=== PATIENT | male | born 1970 | race Caucasian/White ===

== ENCOUNTER → 2018-06-18 08:29 | Outpatient (CLI) | payer BC, SELFPAY ==
[2018-06-23 07:04] LABS: H. pylori Stool Ag, EIA Negative (Negative)
== END ==
PROVIDERS: Visit Provider Surgery
DX: A04.8 Other specified bacterial intestinal infections (principal)
CPT/HCPCS: 87338

== ENCOUNTER → 2019-12-13 09:51 | Outpatient (CLI) | payer BC, SELFPAY ==
--- NOTE | 2019-12-13 09:57 | XR_ITS ---
PROCEDURE: XR SHOULDER RT MIN 2V CLINICAL INDICATION: separatrion of AC joint follow up Follow-up AC joint separation COMPARISON: XR SHOULDER RT MIN 2V from 10/15/2019 FINDINGS: No change in the grade 3 right AC joint separation. There is some developing calcification in the coracoclavicular ligament region IMPRESSION: Stable grade 3 right AC separation with some developing calcification in the core cul ligament area at the clavicle Dictated by: Jeremy Shook MD 12/13/2019 18:49 Electronically signed by Jeremy Shook MD in [place] 12/13/2019 18:49
== END ==
PROVIDERS: PCP Family Medicine; Visit Provider Orthopaedic Surgery
DX: S43.101A Unspecified dislocation of right acromioclavicular joint, initial encounter (principal)
CPT/HCPCS: 73030

== ENCOUNTER 2019-12-16 08:30 | Outpatient (RCR) | payer BC, SELFPAY ==
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
--- NOTE | 2019-12-13 08:36 | HMH.RHREAS ---
Rehab Reassessment Rehab OP Re-assessment Start: 12/13/19 08:09 Freq: Status: Active Protocol: Document 12/13/19 08:09 LETICIA (Rec: 12/13/19 08:36 LETICIA [id number]) Electronically Signed By Gómez Toussaint, PT 12/13/19 08:09 Rehab Re-assessment Subjective Subjective PT REPORTS 0-1/10 R SHOULDER PAIN ON VAS W/ACTIVITY, AND FEELS 90% BETTER OVERALL SINCE I EVAL Objective Objective Notes AROM: R SH WFL ALL DIRECTIONS MMT: R SH FLX 4+/5, ABD 4-4+/5 , IR 5/5, ER 4+/5, BICEP 5/5, TRICEP 5/5 TTP: R AC JT 11/12 Assessment Progress Assessment Progressing as Expected Assessment Notes PT W/IMPROVED ROM, STRENGTH, AND TTP Patient goals met STG'S 06/18 Goals Not Met STG'S 06/18 Plan Plan PT TO CONT. W/SKILLED P.T. TO MAKE FURTHER IMPROVEMENTS IN STRENGTH, ROM, AND TTP TO ALLOW FOR OPTIMAL FUNCTION AND ALLOW FOR FULL RETURN TO WORK RELATED ACTIVITIES Frequency of Therapy 1-2X/WK Duration of therapy 1-2WKS Time and Billing Re-Eval Time 15 Re-Eval Billing Units 1 PHYSICIAN CERTIFICATION: I certify the specified therapy services for Drew Bender are required, authorized, and reviewed every 30 days.
== END 2019-12-16 08:35 | disposition home or self-care (01) ==
LOC: PT 08:30
PROVIDERS: PCP Family Medicine; Visit Provider Orthopaedic Surgery
DX: S43.101D Unspecified dislocation of right acromioclavicular joint, subsequent encounter (principal)
CPT/HCPCS: 97010; 97014; 97016; 97033; 97110; 97163; 97164; G0283

== ENCOUNTER 2020-08-02 09:13 | Emergency (ER) | payer BC, SELFPAY ==
[2020-08-02 09:26] VITALS: BP 138/90; PULSE 101; RESP 19; TEMP 37; O2SAT 96; BMI 28.8
[2020-08-02 09:37] LABS: UTC Strep Screen (Rapid) Negative (Negative)
--- NOTE | 2020-08-02 09:38 | HMH.EDUTC ---
[facility] [place] Impression: Viral syndrome Disposition: Home, Self-Care Condition on Discharge: Good Instructions: Sore Throat, DI for Fever (Symptom) -- Adult, Preventing the Spread of Coronavirus Discharge Instructions Additional Instructions: *Monitor Temp, Over the counter Motrin or Tylenol as directed/as needed Tylenol every 4 hours and Motrin every 6 hours (as long as your family doctor has told you that you can take it) for fever or pain. and straight to ER if unable to lower temp less than 101.0 after medication given *Warm salt water gargles may help to soothe the throat *Throat Lozenges *Warm fluids like tea with honey may help to soothe the throat *Sleep elevated *Humidifier/Vaporizer *Flonase 2 sprays in each nostril daily but be aware that it may take 2-3 days before you notice improvement Your throat swab was sent for culture. Those results are typically sent to your primary care. Be sure to follow up in 2-3 days with your family doctor/primary care physician if no improvement so they can review those result and treat if necessary. If you don?t have a primary care doctor, I recommend you get one but in the mean time, you will have to return to a walk in clinic Follow up IMMEDIATELY for new or worsening symptoms or no Noticeable improvement over the next 48-72 hours. 911 for difficulty breathing or swallowing You was tested for today for COVID19 your test result should be back within the next 48-72 hours, call back to the [facility] to see if your test results are back and the result You was given a handout with instructions for Self Quarantine and Self isolation for while you wait on test results and what to do if they are positive Referrals: Brayden Jerez MD [Primary Care Provider] - As needed Forms: Work/School Release Time of Disposition: 09:41 Medical Decision Making - Leoncio Inquiry Pt receiving controlled substance: No Leoncio was queried for this patient: No Vital Signs: 08/02/20 09:26 Temperature 98.6 F Temperature Source Oral Pulse Rate [Right Brachial] 101 H Respiratory Rate 19 Blood Pressure [Right Arm] 138/90 Blood Pressure Mean [Right Arm] 106 Blood Pressure Source [Right Arm] Automatic Cuff Blood Pressure Position [Right Arm] Sitting 02 Sat by Pulse Oximetry 96 Oxygen Delivery Method Room Air - Lab Data Lab results reviewed: Yes: I reviewed the patient's lab results. Lab Results 08/02/20 09:26: Influenza Type A Ag Negative, Influenza Type B Ag Negative 08/02/20 09:26: Strep Scn Rapid Clinic Negative Orders (Tests/Meds): ORDERS Category Date Time Status Covid-19 Nasal PCR Sendout [facility] 08/02/20 09:26 Ordered Strep Screen Confirmation Stat Micro 08/02/20 09:26 [place] [facility] [place] - General Stated complaint: fever,aches,sore throat Time Seen by Provider: 08/02/20 09:38 Mode of Arrival: Ambulatory Source of Information: Patient Limitations: No Limitations Description of Symptoms (Recalled from Triage Doc. by RN): PATIENT C/O FEVER, CHILLS, BODY ACHES, SORE THROAT, AND SHORTNESS OF BREATH SINCE LAST NIGHT HEENT Symptoms (Recalled from RN notes): No Resp Symptoms (Recalled from RN notes): Yes Skin Symptoms (Recalled from RN notes): No MS Symptoms (Recalled from RN notes): Yes Functional Status (Recalled from RN notes): WNL - History of Present Illness Provider Complaint: Patient states that he started having sore throat, fever and body aches yesterday and then this morning still have a fever of 100.2 so he couldnt go to work so they required him to come in and get checked for COVID before he could return to work - Related Data Home Medications Medication Instructions Recorded Confirmed No Known Home Medications 12/14/19 08/02/20 Allergies Allergy/AdvReac Type Severity Reaction Status Date / Time No Known Allergies Allergy Verified 12/14/19 09:30 - Worker's Comp Is this a Worker's Comp case?: No [facility] History - Hepati
[2020-08-02 09:40] LABS: UTC Influenza A Antigen Negative (Negative); UTC Influenza B Antigen Negative (Negative)
[2020-08-02 09:42] VITALS: BP 138/90; PULSE 101; RESP 19; TEMP 37; O2SAT 96
[2020-08-03 14:26] LABS: Covid-19 Nasal PCR Sendout Lex NOT DETECTED
== END 2020-08-02 09:44 | disposition home or self-care (01) ==
PROVIDERS: Emergency Provider Nurse Practitioner; PCP Family Medicine
DX: B34.9 Viral infection, unspecified (principal); Z20.828 Contact with and (suspected) exposure to other viral communicable diseases; K21.9 Gastro-esophageal reflux disease without esophagitis
CPT/HCPCS: 87804; 87880; 99202; U0004

== ENCOUNTER → 2022-09-24 15:23 | Outpatient (CLI) | payer BC, SELFPAY ==
[2022-09-24 18:17] LABS: Chloride 96 mmol/L (98-107); Potassium 4.6 mmoL/L (3.5-5.1); Sodium 137 mmol/L (136-145)
[2022-09-24 18:20] LABS: Alanine Aminotransferase 49 U/L (12-78); Albumin Level 4.6 g/dl (3.5-5.0); Albumin/Globulin Ratio 1.6 (1.1-1.8); Alkaline Phosphatase 76 U/L (38-126); Anion Gap 15.6 mEq/L (5-15); Aspartate Amino Transferase 54 U/L (17-59); Bilirubin,Total 0.9 mg/dl (0.2-1.3); Blood Urea Nitrogen 22 mg/dl (9-20); Carbon Dioxide 30 mmol/L (22.0-30.0); Cholesterol 247 mg/dl (140-200); Estimated Glomerular Filt Rate 89 ml/min (>60); GFR (African American) 108 ML/MIN (>60); Globulin 2.8 g/dL (1.3-3.2); Total Protein,Serum 7.4 g/dl (6.3-8.2); Triglycerides 182 mg/dl (30-150); VLDL Cholesterol 36 mg/dL (0-40)
[2022-09-24 18:21] LABS: Calcium 9.9 mg/dl (8.4-10.2); Chol/HDL Ratio 5.5 (1-3.5); Glucose 80 mg/dl (74-100); HDL Cholesterol 45 mg/dl (40-60)
[2022-09-24 18:31] LABS: Direct LDL Cholesterol 128.48 mg/dL (100-129)
[2022-09-24 19:52] LABS: Prostate Specific Ag Screen 0.6 ng/ml (0.0-4.0)
== END ==
PROVIDERS: PCP Family Medicine; Visit Provider Family Medicine
DX: I10 Essential (primary) hypertension (principal); E87.5 Hyperkalemia; Z12.5 Encounter for screening for malignant neoplasm of prostate
CPT/HCPCS: 36415; 80053; 80061; G0103

== ENCOUNTER 2023-02-21 09:06 | Emergency (ER) | payer BC, SELFPAY ==
[2023-02-21 09:25] VITALS: BP 161/95; PULSE 71; RESP 19; TEMP 36.8; O2SAT 98; BMI 30.5
--- NOTE | 2023-02-21 10:21 | EXP.UTC ---
Discharge Plan Disposition Patient Disposition: Home, Self-Care Condition: Good Prescriptions Prescriptions: New amoxicillin 875 mg tablet 875 mg PO BID 10 Days Qty: 20 0RF polymyxin B sulf-trimethoprim [Polytrim] 10,000 unit- 1 mg/mL drops 1 drp ophthalmic (eye) Q3H 10 Days Qty: 10 1RF Rx Instructions: while awake; do not exceed 6 doses in 24 hours fluticasone propionate [Flonase Allergy Relief] 50 mcg/actuation spray,suspension 1 spray intranasal DAILY Qty: 16 1RF Rx Instructions: administer into each nostril No Action meloxicam 7.5 mg tablet 7.5 mg PO DAILY lisinopril 10 mg tablet 10 mg PO DAILY omeprazole 20 mg capsule,delayed release(DR/EC) 20 mg PO DAILY Referrals Follow up/Referrals: Brayden Jerez MD [Primary Care Provider] - See instructions Clinical Impressions Clinical Impression: Acute upper respiratory infection Conjunctivitis Qualifiers: Acute conjunctivitis type: bacterial Laterality: bilateral Instructions Patient Instructions: DI for Conjunctivitis, DI for Viral Upper Respiratory Infection -- Adult Discharge ED Provider: Clementine Franks [facility] General Stated complaint: Congestion, drainage, eye inflammation Mode of Arrival: Ambulatory Source of Information: Patient Limitations: No Limitations Time Seen by Provider: 02/21/23 10:21 Description of Symptoms (Recalled from Triage Doc. by RN): PATIENT EYE SWELLING AND SINUS CONGESTION X 3 DAYS HEENT Symptoms (Recalled from RN notes): Yes Resp Symptoms (Recalled from RN notes): No Skin Symptoms (Recalled from RN notes): No MS Symptoms (Recalled from RN notes): No Functional Status (Recalled from RN notes): WNL History of Present Illness Provider Complaint: Pt states that he woke up this morning and had to take a warm rag to wipe the crust off his eye to completely open. He reports purulent drainage from both eyes as well as an URI for the past two weeks. Pt states that he has been taking Tussin for his cough and used Zicam this morning. He states that he has taken Zyrtec for the past 4 days. Related Data Home Medications Medication Instructions Recorded Confirmed lisinopril 10 mg tablet 10 mg PO DAILY Hypertension 02/21/23 02/21/23 meloxicam 7.5 mg tablet 7.5 mg PO DAILY . 02/21/23 02/21/23 omeprazole 20 mg capsule,delayed 20 mg PO DAILY Acid reflux 02/21/23 02/21/23 release Previous Rx's Medication Instructions Recorded amoxicillin 875 mg tablet 875 mg PO BID 10 days #20 tabs 02/21/23 fluticasone propionate 50 1 spray intranasal DAILY #16 grams 02/21/23 mcg/actuation nasal spray,suspension (Flonase Allergy Relief) polymyxin B sulfate 10,000 1 drp ophthalmic (eye) Q3H 10 days 02/21/23 unit-trimethoprim 1 mg/mL eye #10 mL drops (Polytrim) Allergies Allergy/AdvReac Type Severity Reaction Status Date / Time No Known Allergies Allergy Verified 12/14/19 09:30 Worker's Comp Is this a Worker's Comp case?: No [facility] Disclaimer: The information contained in this section may have been updated after the patient was seen, as this information can be updated by other users. Social History Smoking Status: Never smoker alcohol intake: never counseling provided: none substance use type: denies use current occupational status: other Travel in the last 8 weeks: None ROS Obtained: Yes All systems reviewed & no additional complaints except as documented Constitutional Constitutional: Reports system reviewed and no additional complaints, except as documented, Reports headache(s) and Reports malaise Eyes Eyes: Reports system reviewed and no additional complaints, except as documented, Reports eye discharge, Reports irritation, Reports itchy eyes and Reports sensitivity to light ENT Ears, Nose, Mouth, and Throat: Reports system reviewed and no additional complaints, except as documented, Reports headache(s), Reports nasal congestion, Reports tony
[2023-02-21 10:40] VITALS: BP 140/96; PULSE 71; RESP 19; TEMP 36.8; O2SAT 98
== END 2023-02-21 10:48 | disposition home or self-care (01) ==
PROVIDERS: Emergency Provider Nurse Practitioner Family; PCP Family Medicine
DX: J06.9 Acute upper respiratory infection, unspecified (principal); R22.0 Localized swelling, mass and lump, head
CPT/HCPCS: 99204; 99212; 99214; G0463

== ENCOUNTER → 2023-09-07 15:26 | Outpatient (CLI) | payer BC, SELFPAY ==
[2023-09-07 16:28] LABS: Alanine Aminotransferase 37 U/L (12-78); Albumin Level 4.5 g/dl (3.5-5.0); Albumin/Globulin Ratio 1.4 (1.1-1.8); Alkaline Phosphatase 66 U/L (38-126); Anion Gap 11.2 mEq/L (5-15); Aspartate Amino Transferase 40 U/L (17-59); Bilirubin,Total 0.9 mg/dl (0.2-1.3); Blood Urea Nitrogen 19 mg/dl (9-20); Calcium 9.3 mg/dl (8.4-10.2); Carbon Dioxide 29 mmol/L (22.0-30.0); Chloride 101 mmol/L (98-107); Chol/HDL Ratio 5.8 (1-3.5); Cholesterol 243 mg/dl (140-200); Estimated Glomerular Filt Rate 79 ml/min (>60); GFR (African American) 95 ML/MIN (>60); Globulin 3.2 g/dL (1.3-3.2); Glucose 92 mg/dl (74-100); HDL Cholesterol 42 mg/dl (40-60); Potassium 4.2 mmoL/L (3.5-5.1); Sodium 137 mmol/L (136-145); Total Protein,Serum 7.7 g/dl (6.3-8.2); Triglycerides 108 mg/dl (30-150); VLDL Cholesterol 22 mg/dL (0-40)
[2023-09-07 16:39] LABS: Direct LDL Cholesterol 142.25 mg/dL (100-129)
[2023-09-07 16:58] LABS: Prostate Specific Ag Screen 0.6 ng/ml (0.0-4.0)
== END ==
PROVIDERS: PCP Family Medicine; Visit Provider Family Medicine
DX: I10 Essential (primary) hypertension (principal); E78.5 Hyperlipidemia, unspecified; Z12.5 Encounter for screening for malignant neoplasm of prostate
CPT/HCPCS: 36415; 80053; 80061; G0103

== ENCOUNTER 2025-01-16 15:06 | Outpatient (CLI) | payer BC, SELFPAY ==
[2025-01-16 17:20] LABS: Alanine Aminotransferase 51 U/L (12-78); Albumin Level 4.6 g/dl (3.5-5.0); Albumin/Globulin Ratio 1.7 (1.1-1.8); Alkaline Phosphatase 61 U/L (38-126); Anion Gap 9.2 mEq/L (5-15); Aspartate Amino Transferase 51 U/L (17-59); Blood Urea Nitrogen 20 mg/dl (9-20); Calcium 9.4 mg/dl (8.4-10.2); Carbon Dioxide 28 mmol/L (22.0-30.0); Chloride 102 mmol/L (98-107); Chol/HDL Ratio 5.1 (1-3.5); Cholesterol 233 mg/dl (140-200); Estimated Glomerular Filt Rate 89 ml/min (>60); GFR (African American) 107 ML/MIN (>60); Globulin 2.7 g/dL (1.3-3.2); Glucose 91 mg/dl (74-100); HDL Cholesterol 46 mg/dl (40-60); Magnesium 1.9 mg/dl (1.6-2.3); Potassium 4.2 mmoL/L (3.5-5.1); Sodium 135 mmol/L (136-145); Total Protein,Serum 7.3 g/dl (6.3-8.2); Triglycerides 130 mg/dl (30-150); Uric Acid 7.1 mg/dl (3.5-8.5); VLDL Cholesterol 26 mg/dL (0-40)
[2025-01-16 17:31] LABS: Direct LDL Cholesterol 130.45 mg/dL (100-129)
[2025-01-16 17:49] LABS: Prostate Specific Ag Screen 0.5 ng/ml (0.0-4.0)
== END 2025-01-16 23:59 | disposition home or self-care (01) ==
LOC: LAB 15:08
PROVIDERS: PCP Family Medicine; Visit Provider Family Medicine
DX: E78.5 Hyperlipidemia, unspecified (principal); E79.0 Hyperuricemia without signs of inflammatory arthritis and tophaceous disease; I10 Essential (primary) hypertension; Z12.5 Encounter for screening for malignant neoplasm of prostate
CPT/HCPCS: 36415; 80053; 80061; 83735; 84550; G0103

== ENCOUNTER → 2025-02-02 09:00 | Outpatient (CLI) | payer BC, SELFPAY | LOC: SL 09:00 | PROVIDERS: PCP Family Medicine; Visit Provider Family Medicine | DX: R06.83 Snoring (principal) | CPT/HCPCS: G0399 ==